=== PATIENT | female | born 1950 | race African-American/Black ===

== ENCOUNTER 2023-08-19 04:33 | Emergency (ER) | payer OTHER ==
[~2023-08-19] VITALS: Ht 167.6 cm; Wt 82.0 kg
[2023-08-19 04:45] VITALS: O2SAT 98
[2023-08-19 05:30] LABS: BASOPHILS % 0.9 % (0.0-2.0); DIFFERENTIAL COMMENT 0; EOSINOPHILS % 0.4 % (0.0-5.0); HEMATOCRIT. 40.2 % (36.0-48.0); HEMOGLOBIN. 12.4 g/dL (12.0-16.0); LYMPHOCYTES % 17.5 % (20.0-50.0); MEAN CORPUSCULAR HGB CONC 30.9 g/dL (31.0-37.0); MEAN CORPUSCULAR VOLUME 71.1 fL (81.0-99.0); MEAN PLATELET VOLUME 7.9 fl (7.4-10.4); MONOCYTES % 7.3 % (2.0-8.0); NEUTROPHILS % 73.9 % (40.0-76.0); PLATELET 313 x1000/uL (130-400); RED BLOOD CELL COUNT 5.65 mill/uL (4.2-5.4); RED CELL DISTRIBUTION WIDTH 14.5 % (11.6-14.6); WHITE BLOOD COUNT 6.8 x1000/uL (4.5-11.0)
[2023-08-19] MEDS: SODIUM CHLORIDE 0.9% 1,000 ML IV ONE (05:30)
[2023-08-19 05:41] LABS: CHLORIDE 103 mEq/L (98-107); POTASSIUM 4.1 mEq/L (3.5-5.1); SODIUM 136 mEq/L (136-145)
[2023-08-19 05:42] LABS: CARBON DIOXIDE 22 mEq/L (21-32)
[2023-08-19 05:43] LABS: CALCIUM 10.4 mg/dL (8.7-10.4)
[2023-08-19 05:47] LABS: GLUCOSE 195 mg/dL (70-105); UREA NITROGEN BLOOD 17 mg/dL (9-23)
[2023-08-19 05:48] LABS: TROPONIN I HIGH SENSITIVITY < 4 ng/L (3.0-34)
[2023-08-19] MEDS: ONDANSETRON HCL 4MG/2ML INJ IV STA (05:59)
[2023-08-19 08:47] LABS: TROPONIN I HIGH SENSITIVITY < 4 ng/L (3.0-34)
[2023-08-19] MEDS ORDERED: ONDA4TAB11 PO (09:00)
[2023-08-19 10:29] VITALS: BP 125/83; PULSE 70; RESP 15; TEMP 98.8
== END 2023-08-19 10:30 | disposition home or self-care (01) ==
LOC: ER 04:33
DX: R11.2 Nausea with vomiting, unspecified (principal); R19.7 Diarrhea, unspecified; E78.00 Pure hypercholesterolemia, unspecified
CPT/HCPCS: 99285; 96374; 71045; 96361; 80048; 83880; 85025; 84484; 87804 ×2; 36415; 93005; J2405; J7030